=== PATIENT | female | born 1955 | race Two or more races ===

== ENCOUNTER 2020-02-18 08:45 | Inpatient (IN) | payer OTHER ==
[~2020-02-18] VITALS: Ht 157.5 cm; Wt 64.0 kg
[2020-02-18] MEDS ORDERED: ECOTRIN81 MG PO (14:31)
[2020-02-25] MEDS ORDERED: ATORVASTATIN CA20 MG (09:59)
[2020-02-28] MEDS ORDERED: LEVSIN/SL0.125 MG SL (09:04)
[2020-02-28] MEDS ORDERED: ULTRACET PO (09:04)
== END 2020-02-28 11:43 | disposition home or self-care (01) | DRG 331 ==
LOC: SURH 02-25 07:00 → O/R 02-25 09:29 → SURG 02-25 09:29 → O/R 02-25 21:18 → SURG 02-26 01:04 → O/R 02-26 01:15 → SURG 02-26 07:48 → O/R 02-26 07:53 → SURG 02-26 10:32
PROVIDERS: ADMIT Surgery; ATTEND Surgery
PROC: 0W9J4ZZ Drainage of Pelvic Cavity, Percutaneous Endoscopic Approach (ICD-10-PCS; 2020-02-25)
PROC: 0DJD8ZZ Inspection of Lower Intestinal Tract, Via Natural or Artificial Opening Endoscopic (ICD-10-PCS; 2020-02-25)
PROC: 0DTN4ZZ Resection of Sigmoid Colon, Percutaneous Endoscopic Approach (ICD-10-PCS; principal; 2020-02-25 07:00)
DX: K56.699 Other intestinal obstruction unspecified as to partial versus complete obstruction (principal); Z20.828 Contact with and (suspected) exposure to other viral communicable diseases